=== PATIENT | female | born 1990 | race Two or more races ===

== ENCOUNTER 2021-09-14 17:04 | Emergency (ER) | payer OTHER ==
[~2021-09-14] VITALS: Ht 170.2 cm; Wt 67.6 kg
== END 2021-09-14 21:30 | disposition home or self-care (01) ==
LOC: ER 17:04
DX: O20.8 Other hemorrhage in early pregnancy (principal); O99.011 Anemia complicating pregnancy, first trimester; Z3A.01 Less than 8 weeks gestation of pregnancy

== ENCOUNTER 2022-05-10 22:05 | Emergency (ER) | payer OTHER ==
[~2022-05-10] VITALS: Ht 170.2 cm; Wt 65.8 kg
== END 2022-05-11 03:36 ==
LOC: ER 22:05
DX: O26.893 Other specified pregnancy related conditions, third trimester (principal); Z3A.28 28 weeks gestation of pregnancy; S82.492A Other fracture of shaft of left fibula, initial encounter for closed fracture; W18.30XA Fall on same level, unspecified, initial encounter; Y93.9 Activity, unspecified; Y92.89 Other specified places as the place of occurrence of the external cause; Y99.9 Unspecified external cause status

== ENCOUNTER 2022-07-27 04:55 | Inpatient (IN) | payer OTHER ==
[~2022-07-27] VITALS: Ht 170.2 cm; Wt 77.1 kg
[2022-07-27] MEDS ORDERED: PRENATAL CAPLE1 EAC1 PO (05:54)
[2022-07-27] MEDS ORDERED: IRON325 MG PO (05:54)
== END 2022-07-29 15:04 | disposition home or self-care (01) | DRG 807 ==
LOC: LDR 04:55 → OB/GYN 04:55
PROVIDERS: ADMIT Specialist; ATTEND Specialist
PROC: 10E0XZZ Delivery of Products of Conception, External Approach (ICD-10-PCS; principal; 2022-07-27)
PROC: 0KQM0ZZ Repair Perineum Muscle, Open Approach (ICD-10-PCS; 2022-07-27)
PROC: 4A1HXCZ Monitoring of Products of Conception, Cardiac Rate, External Approach (ICD-10-PCS; 2022-07-27)
DX: O70.1 Second degree perineal laceration during delivery (principal); Z37.0 Single live birth; Z3A.39 39 weeks gestation of pregnancy; Z20.822 Contact with and (suspected) exposure to COVID-19